=== PATIENT | female | born 1975 | race Caucasian/White ===

== ENCOUNTER 2021-11-01 18:14 | Emergency (ER) | payer MEDICAID ==
[~2021-11-01] VITALS: Ht 160 cm; Wt 75.0 kg
[2021-11-01 19:46] VITALS: BP 109/64
== END 2021-11-01 20:47 | disposition home or self-care (01) ==
LOC: EMS 18:21
DX: U07.1 COVID-19 (principal); K21.9 Gastro-esophageal reflux disease without esophagitis
CPT/HCPCS: 71045; 99283